=== PATIENT | male | born 1960 | race American Indian/Alaskan Native ===

== ENCOUNTER 2016-08-22 14:46 | Emergency (ER) | payer OTHER ==
[2016-08-22 15:01] VITALS: BP 100/69
--- NOTE | 2016-08-22 15:44 | Emergency Department Report ---
Chief Complaint: Weakness Stated Complaint: LOW BLOOD PRESSURE/DRY EYES/DIZZY Time Seen by Provider: 08/22/16 15:38 - HPI History of Present Illness: patient is a 56 y/o male who presents due to dizziness and low blood pressure x 1 day. Patient states that he started feelign dizzy yesterday. Patient states that he checked his BP today and it was sys 100s. Patient denies any chest pain or SOB. Patient states that he started lisinopril 2 months ago. - ROS Review of Systems: ROS GENERAL: patient denies any fever, chills LUNG: no SOB CV: no chest pain or palpitations abd:no abdominal pain Neuro: dizziness - Exam Vital Signs: Vital Signs 08/22/16 14:55 Temperature 98.6 F Pulse Rate 78 Respiratory 20 Rate Blood Pressure 100/69 O2 Sat by Pulse 97 Oximetry Physical Exam: general:patient was alert, well nourished, well developed Lung: clear bilateral lung sounds with goos airway exchange CV: regular HR and rhythm, no murmurs or gallops abd: no abdominal tenderness neuro: alert and oriented x 3 MSE screening note: Focused history and physical exam performed. Due to findings the following was ordered:cardiac protocol ED Disposition for MSE Condition: Stable
[2016-08-22 16:19] LABS: Basophils % (Auto) 0.4 % (0.0-1.8); Eosinophils % (Auto) 2.8 % (0.0-4.3); Hematocrit 43.7 % (35.5-45.6); Hemoglobin 14.2 gm/dl (11.8-15.2); Mean Corpuscular HGB Conc 33 % (32-34); Mean Corpuscular Hemoglobin 26 pg (28-32); Mean Corpuscular Volume 81 fl (84-94); Platelet Count 329 K/mm3 (140-440); Red Blood Count 5.41 M/mm3 (3.65-5.03); Red Cell Distribution Width 15.3 % (13.2-15.2); White Blood Count 8.9 K/mm3 (4.5-11.0)
[2016-08-22 16:26] LABS: Albumin 3.8 g/dL (3.9-5); BUN/Creatinine Ratio 14.58; Bilirubin,Total 0.4 mg/dL (0.1-1.2); Calcium 9.4 mg/dL (8.4-10.2); Chloride 93.7 mmol/L (98-107); Total Protein 7.5 g/dL (6.3-8.2)
== END 2016-08-22 16:30 | disposition left against medical advice (07) ==
LOC: ED 14:46
DX: R42 Dizziness and giddiness (principal); Z53.21 Procedure and treatment not carried out due to patient leaving prior to being seen by health care provider
CPT/HCPCS: 36415; 80053; 82962; 84484; 85025

== ENCOUNTER 2019-08-24 17:30 | Emergency (ER) | payer OTHER ==
[2019-08-24] MEDS ORDERED: MORPHINE 4 MG/1 ML INJ IV ONE (18:12)
[2019-08-24] MEDS ORDERED: KETOROLAC 30 MG/1 ML INJ IV ONE (18:12)
[2019-08-24] MEDS ORDERED: ONDANSETRON 4 MG/2 ML INJ IV ONE (18:12)
[2019-08-24] MEDS ORDERED: SODIUM CHLORIDE 0.9% 1000 ML 1,000 ML IV ONE (18:12)
[2019-08-24 18:21] LABS: Bilirubin,Urine NEG (Negative); Blood,Urine NEG (Negative); Color,Urine Yellow (Yellow); Mucus,Urine FEW /HPF; Protein,Urine <15 mg/dL mg/dL (Negative); Urobilinogen,Urine < 2.0 mg/dL (<2.0); WBC,Urine < 1.0 /HPF (0.0-6.0)
--- NOTE | 2019-08-24 18:22 | Emergency Department Report ---
ED General Adult HPI - General Chief complaint: Abdominal Pain Stated complaint: KIDNEY STONES Time Seen by Provider: 08/24/19 18:11 Source: patient Mode of arrival: Ambulatory Limitations: No Limitations - History of Present Illness Initial comments: Patient is a 5-year-old male presents emergency room with complaints of right flank pain that began 3 weeks ago but the pain worsened today. He states he feels intermittent sharp stabbing pain which waxes and wanes. Patient has a history of nephrolithiasis. He states he last had nephrolithiasis 2 years ago and had to have a lithotripsy at that time. He denies any nausea, vomiting, diarrhea, fever, dysuria, urinary frequency. He states he was recently treated for UTI by his primary care doctor at the [facility], he states he does not know the name of the antibiotic, he states that he completed the medication a week ago. He also has a history of diabetes and uses insulin. - Related Data Previous Rx's Medication Instructions Recorded Last Taken Type Ibuprofen [Motrin 800 MG tab] 800 mg PO Q8HR PRN #30 tablet 09/10/15 Unknown Rx Lisinopril/Hydrochlorothiazide 1 tab PO QDAY #30 tablet 09/10/15 Unknown Rx [Zestoretic 20-25 mg] Tamsulosin [Flomax] 0.4 mg PO QDAY #7 cap 08/24/19 Unknown Rx traMADoL [Ultram 50 MG tab] 50 mg PO Q6HR PRN #7 tablet 08/24/19 Unknown Rx Allergies Allergy/AdvReac Type Severity Reaction Status Date / Time No Known Allergies Allergy Verified 09/09/15 22:58 ED Review of Systems ROS: Stated complaint: KIDNEY STONES Other details as noted in HPI Comment: All other systems reviewed and negative ED Past Medical Hx - Past Medical History Hx Hypertension: Yes Hx Diabetes: Yes Hx Kidney Stones: Yes - Social History Smoking Status: Never Smoker Substance Use Type: None - Medications Home Medications: Home Medications Medication Instructions Recorded Confirmed Last Taken Type Ibuprofen [Motrin 800 MG tab] 800 mg PO Q8HR PRN #30 tablet 09/10/15 Unknown Rx Lisinopril/Hydrochlorothiazide 1 tab PO QDAY #30 tablet 09/10/15 Unknown Rx [Zestoretic 20-25 mg] Tamsulosin [Flomax] 0.4 mg PO QDAY #7 cap 08/24/19 Unknown Rx traMADoL [Ultram 50 MG tab] 50 mg PO Q6HR PRN #7 tablet 08/24/19 Unknown Rx ED Physical Exam - General Limitations: No Limitations General appearance: alert, in no apparent distress - Head Head exam: Present: atraumatic, normocephalic - Eye Eye exam: Present: normal appearance - ENT ENT exam: Present: mucous membranes moist - Respiratory Respiratory exam: Present: normal lung sounds bilaterally. Absent: respiratory distress, wheezes, rales, rhonchi, stridor, chest wall tenderness, accessory muscle use, decreased breath sounds, prolonged expiratory - Cardiovascular Cardiovascular Exam: Present: regular rate, normal rhythm, normal heart sounds. Absent: systolic murmur, diastolic murmur, rubs, gallop - GI/Abdominal GI/Abdominal exam: Present: soft, normal bowel sounds. Absent: distended, tenderness, guarding, rebound, rigid - Back Exam Back exam: Present: CVA tenderness (R). Absent: CVA tenderness (L) - Neurological Exam Neurological exam: Present: alert, oriented X3 - Psychiatric Psychiatric exam: Present: normal affect, normal mood - Skin Skin exam: Present: warm, dry, intact ED Course Vital Signs 08/24/19 08/24/19 17:50 19:17 Temperature 98.4 F 98.1 F Pulse Rate 110 H 72 Respiratory 18 18 Rate Blood Pressure 131/103 Blood Pressure 150/99 [Left] O2 Sat by Pulse 99 100 Oximetry ED Medical Decision Making - Lab Data Result diagrams: 08/24/19 18:26 08/24/19 19:10 Lab Results 08/24/19 08/24/19 08/24/19 Range/Units 18:00 18:26 19:10 WBC 6.1 (4.5-11.0) K/mm3 RBC 5.90 H (3.65-5.03) M/mm3 Hgb 16.3 H (11.8-15.2) gm/dl Hct 50.5 H (35.5-45.6) % MCV 86 (84-94) fl MCH 28 (28-32) pg MCHC 32 (32-34) % RDW 14.5 (13.2-15.2) % Plt Count 353 (140-440) K/mm3 Lymph % (Auto) 48.1 H (13.4-35.0) % [place] % (Auto) 9.4 H (0.0-7.3) % Eos % (Auto) 2.0 (0.0-4.3) % Baso % (Auto) 0.5 (0.0-1.8) % Lymph # 3.0 (1.2-5.4) K/mm3 [place] # 0.6 (0.0-0.8) K/mm3 Eos # 0.1 (0.0-0.4) K/mm3 Baso # 0.0 (0.0-0.1) K/mm3 Seg Neutrophils % 40.0 (40.0-70.0) % Seg Neutrophils # 2.5 (1.8-7.7) K/mm3 Sodium 134 L (137-145) mmol/L Potassium 3.9 (3.6-5.0) mmol/L Chloride 95.7 L (98-107) mmol/L Carbon Dioxide 27 (22-30) mmol/L Anion Gap 15 mmol/L BUN 10 (9-20) mg/dL Creatinine 0.9 (0.8-1.5) mg/dL Estimated GFR > 60 ml/min BUN/Creatinine Ratio 11 % Glucose 246 H (75-100) mg/dL Calcium 9.2 (8.4-10.2) mg/dL Total Bilirubin 0.60 (0.1-1.2) mg/dL AST 12 (5-40) units/L ALT 10 (7-56) units/L Alkaline Phosphatase 56 (35-129) units/L Total Protein 7.0 (6.3-8.2) g/dL Albumin 3.7 L (3.9-5) g/dL Albumin/Globulin Ratio 1.1 % Lipase 15 (13-60) units/L Urine Color Yellow (Yellow) Urine Turbidity Clear (Clear) Urine pH 6.0 (5.0-7.0) Ur Specific [place] 1.033 H (1.003-1.030) Urine Protein <15 mg/dl (Negative) mg/dL Urine Glucose (UA) >=500 (Negative) mg/dL Urine Ketones Neg (Negative) mg/dL Urine Blood Neg (Negative) Urine Nitrite Neg (Negative) Urine Bilirubin Neg (Negative) Urine Urobilinogen < 2.0 (<2.0) mg/dL Ur Leukocyte Esterase Neg (Negative) Urine WBC (Auto) < 1.0 (0.0-6.0) /HPF Urine RBC (Auto) 1.0 (0.0-6.0) /HPF U Epithel Cells (Auto) < 1.0 (0-13.0) /HPF Urine Mucus Few /HPF Vital Signs 08/24/19 08/24/19 17:50 19:17 Temperature 98.4 F 98.1 F Pulse Rate 110 H 72 Respiratory 18 18 Rate Blood Pressure 131/103 Blood Pressure 150/99 [Left] O2 Sat by Pulse 99 100 Oximetry - Radiology Data Radiology results: report reviewed CT ABDOMEN AND PELVIS WITHOUT CONTRAST INDICATION / CLINICAL INFORMATION: MAIN: right flank pain, hx of nephrolithiasis, Pt. sts extensive history of renal stones. TECHNIQUE: Axial CT images were obtained through the abdomen and pelvis without IV contrast. All CT scans at this location are performed using CT dose reduction for ALARA by means of automated exposure control. COMPARISON: None available. FINDINGS: LOWER CHEST: No significant abnormality. LIVER: No significant abnormality. GALLBLADDER: No significant abnormality. BILE DUCTS: No significant abnormality. PANCREAS: No significant abnormality. SPLEEN: No significant abnormality. ADRENALS: No significant abnormality. RIGHT KIDNEY and URETER: Tiny nonobstructive stones. LEFT KIDNEY and URETER: Tiny nonobstructive stones. STOMACH and SMALL BOWEL: No significant abnormality. COLON: No significant abnormality. Few colonic diverticula. APPENDIX: Not well identified and cannot be assessed. PERITONEUM: No free fluid. No free air. No fluid collection. LYMPH NODES: No significant adenopathy. AORTA and ARTERIES: Mild atherosclerotic calcification. IVC and VEINS: No significant abnormality. URINARY BLADDER: Mildly thickened urinary bladder wall. REPRODUCTIVE ORGANS: No significant abnormality. ADDITIONAL FINDINGS: None. SKELETAL SYSTEM: No significant abnormality. IMPRESSION: 1. Tiny nonobstructive stones present throughout both collecting systems. No hydronephrosis or evidence of obstructive ureteral calculus currently identified. 2. The urinary bladder wall is thickened which could be seen with infectious cystitis versus bladder outlet obstruction from prostate enlargement.. Signer Name: Tom Mar MD Signed: 08/24/2019 7:33 PM Workstation Name: [id number] Transcribed By: BC Dictated By: Tom Mar MD Electronically Authenticated By: Tom Mar MD Signed Date/Time: 08/24/191932 DD/ 27 TD/TT: - Medical Decision Making Patient is a 5-year-old male presents emergency room with complaints of right flank pain that began 3 weeks ago but the pain worsened today. He states he fe els intermittent sharp stabbing pain which waxes and wanes. Patient has a history of nephrolithiasis. He states he last had nephrolithiasis 2 years ago and had to have a lithotripsy at that time. He denies any nausea, vomiting, diarrhea, fever, dysuria, urinary frequency. He states he was recently treated for UTI by his primary care doctor at the [facility], he states he does not know the name of the antibiotic, he states that he completed the medication a week ago. He also has a history of diabetes and uses insulin. Vitals with tachycardia which improved upon repeat. Labs are stable. UA without evidence of UTI or hematuria. On exam patient has right CVA tenderness to percussion. CT abd Pe lvis without contrast shows 1. Tiny nonobstructive stones present throughout both collecting systems. No hydronephrosis or evidence of obstructive ureteral calculus currently identified. 2. The urinary bladder wall is thickened which could be seen with infectious cystitis versus bladder outlet obstruction from prostate enlargement. Patient's UA does not show signs of infection. Discussed all results with patient, discussed thickened bladder/nephrolithiasis and need for prostate evaluation and need for follow-up with urology, patient verbalized understanding. Patient given 1 L IV fluids, Toradol, morphine, Zofran and symptoms completely improved and he was feeling much better and ready to go home. Patient given prescription for tamsulosin and tramadol. advised pt Please take medication as prescribed. Do not drive or operate heavy machinery while taking pain medication. Increase your fluid intake. Follow-up with your primary care doctor. Follow-up with a urologist for further evaluation. Return to emergency room for any new or worsening symptoms. - Differential Diagnosis Nephrolithiasis, BERENICE, UTI, muscle strain, DDD, bulging disc, pyelonephritis Critical care attestation.: If time is entered above; I have spent that time in minutes in the direct care of this critically ill patient, excluding procedure time. ED Disposition Clinical Impression: Right flank pain, Nephrolithiasis, Bladder wall thickening Disposition: -01 TO HOME OR SELFCARE Is pt being admited?: No Does the pt Need Aspirin: No Condition: Stable Instructions: Kidney Stones (ED) Additional Instructions: Please take medication as prescribed. Do not drive or operate heavy machinery while taking pain medication. Increase your fluid intake. Follow-up with your primary care doctor. Follow-up with a urologist for further evaluation. Return to emergency room for any new or worsening symptoms. Prescriptions: Tamsulosin [Flomax] 0.4 mg PO QDAY #7 cap traMADoL [Ultram 50 MG tab] 50 mg PO Q6HR PRN #7 tablet PRN Reason: Pain , Severe (7-10) Referrals: PRIMARY CARE, [Primary Care Provider] - 2-3 Days ABHIJEET GARCIA MD [Staff Physician] - 2-3 Days Time of Disposition: 19:50 Print Language: KINYARWANDA
[2019-08-24 18:41] LABS: Basophils % (Auto) 0.5 % (0.0-1.8); Eosinophils # (Auto) 0.1 K/mm3 (0.0-0.4); Hematocrit 50.5 % (35.5-45.6); Hemoglobin 16.3 gm/dl (11.8-15.2); Lymphocytes % (Auto) 48.1 % (13.4-35.0); Mean Corpuscular HGB Conc 32 % (32-34); Mean Corpuscular Volume 86 fl (84-94); Monocytes # (Auto) 0.6 K/mm3 (0.0-0.8); Monocytes % (Auto) 9.4 % (0.0-7.3); Platelet Count 353 K/mm3 (140-440); Red Cell Distribution Width 14.5 % (13.2-15.2)
[2019-08-24 19:18] VITALS: BP 150/99
--- NOTE | 2019-08-24 19:37 | Cat Scan Report ---
CT ABDOMEN AND PELVIS WITHOUT CONTRAST INDICATION / CLINICAL INFORMATION: MAIN: right flank pain, hx of nephrolithiasis, Pt. sts extensive history of renal stones. TECHNIQUE: Axial CT images were obtained through the abdomen and pelvis without IV contrast. All CT scans at [facility] location are performed using CT dose reduction for ALARA by means of automated exposure control. COMPARISON: None available. FINDINGS: LOWER CHEST: No significant abnormality. LIVER: No significant abnormality. GALLBLADDER: No significant abnormality. BILE DUCTS: No significant abnormality. PANCREAS: No significant abnormality. SPLEEN: No significant abnormality. ADRENALS: No significant abnormality. RIGHT KIDNEY and URETER: Tiny nonobstructive stones. LEFT KIDNEY and URETER: Tiny nonobstructive stones. STOMACH and SMALL BOWEL: No significant abnormality. COLON: No significant abnormality. Few colonic diverticula. APPENDIX: Not well identified and cannot be assessed. PERITONEUM: No free fluid. No free air. No fluid collection. LYMPH NODES: No significant adenopathy. AORTA and ARTERIES: Mild atherosclerotic calcification. IVC and VEINS: No significant abnormality. URINARY BLADDER: Mildly thickened urinary bladder wall. REPRODUCTIVE ORGANS: No significant abnormality. ADDITIONAL FINDINGS: None. SKELETAL SYSTEM: No significant abnormality. IMPRESSION: 1. Tiny nonobstructive stones present throughout both collecting systems. No hydronephrosis or eviden ce of obstructive ureteral calculus currently identified. 2. The urinary bladder wall is thickened which could be seen with infectious cystitis versus bladder outlet obstruction from prostate enlargement.. Signer Name: Tom Mar MD Signed: 08/24/2019 7:33 PM Workstation Name: [id number]
[2019-08-24 19:45] LABS: Alanine Aminotransferase 10 units/L (7-56); Albumin 3.7 g/dL (3.9-5); BUN/Creatinine Ratio 11; Blood Urea Nitrogen 10 mg/dL (9-20); Calcium 9.2 mg/dL (8.4-10.2); Hemolysis Index 10
== END 2019-08-24 20:09 | disposition home or self-care (01) ==
LOC: ED 17:30
DX: N20.0 Calculus of kidney (principal); R10.9 Unspecified abdominal pain; N32.89 Other specified disorders of bladder; I10 Essential (primary) hypertension; E11.9 Type 2 diabetes mellitus without complications; Z79.899 Other long term (current) drug therapy
CPT/HCPCS: 36415; 74176; 80053; 81001; 83690; 85025; 96374; 96375; 99284; J1885; J2270; J2405; J7030

== ENCOUNTER 2021-05-16 19:49 | Emergency (ER) | payer OTHER ==
[2021-05-16] MEDS ORDERED: INSULIN REGULAR, HUMAN 100 UNITS/1 ML IV ONE (23:07)
[2021-05-16] MEDS ORDERED: SODIUM CHLORIDE 0.9% 1000 ML 1,000 ML IV ONE (23:07)
--- NOTE | 2021-05-16 23:10 | Emergency Department Report ---
ED General Adult HPI - General Chief complaint: Hyperglycemia Stated complaint: HYPERGLYCEMIA Time Seen by Provider: 05/16/21 23:01 Source: patient Mode of arrival: Ambulatory Limitations: No Limitations - History of Present Illness Initial comments: 61-year-old male with a past medical here diabetes and hypertension presents to the hospital complaints of elevated blood sugar since running out of medication yesterday. Patient takes Jardiance 25 mg every morning. He took his last dose yesterday. Patient has a PMD affiliated with the [facility] but he travels a lot for work and therefore has not been able to follow-up. He states he was on blood pressure medication in the past but it was discontinued since blood pressure improved. He complains of some mild increase urination without dysuria, increased thirst, nausea, vomiting, or fever. - Related Data Previous Rx's Medication Instructions Recorded Last Taken Type Ibuprofen [Motrin 800 MG tab] 800 mg PO Q8HR PRN #30 tablet 09/10/15 Unknown Rx Lisinopril/Hydrochlorothiazide 1 tab PO QDAY #30 tablet 09/10/15 Unknown Rx [Zestoretic 20-25 mg] Tamsulosin [Flomax] 0.4 mg PO QDAY #7 cap 08/24/19 Unknown Rx traMADoL [Ultram 50 MG tab] 50 mg PO Q6HR PRN #7 tablet 08/24/19 Unknown Rx Empagliflozin [Jardiance] 25 mg PO QAM #30 tab 05/17/21 Unknown Rx Allergies Allergy/AdvReac Type Severity Reaction Status Date / Time No Known Allergies Allergy Verified 05/16/21 22:46 ED Review of Systems ROS: Stated complaint: HYPERGLYCEMIA Other details as noted in HPI Comment: All other systems reviewed and negative ED Past Medical Hx - Past Medical History Hx Hypertension: Yes Hx Diabetes: Yes Hx Kidney Stones: Yes - Surgical History Past Surgical History?: No - Social History Smoking Status: Never Smoker Substance Use Type: None - Medications Home Medications: Home Medications Medication Instructions Recorded Confirmed Last Taken Type Ibuprofen [Motrin 800 MG tab] 800 mg PO Q8HR PRN #30 tablet 09/10/15 Unknown Rx Lisinopril/Hydrochlorothiazide 1 tab PO QDAY #30 tablet 16 Unknown Rx [Zestoretic 20-25 mg] Tamsulosin [Flomax] 0.4 mg PO QDAY #7 cap 08/24/19 Unknown Rx traMADoL [Ultram 50 MG tab] 50 mg PO Q6HR PRN #7 tablet 08/24/19 Unknown Rx Empagliflozin [Jardiance] 25 mg PO QAM #30 tab 05/17/21 Unknown Rx ED Physical Exam - General Limitations: No Limitations - Other Other exam information: General: No acute distress Head: Atraumatic Eyes: normal appearance Neck: Normal appearance, no midline tenderness Chest: Clear to auscultation bilaterally CV: Regular rate and rhythm Abdomen: Soft, normal bowel sounds, nontender, nondistended, no rebound or guarding Back: Normal inspection Extremity: Normal inspection, full range of motion Neuro: Alert O x 3, no facial asymmetry, speech clear, no gross motor sensory deficit Psych: Appropriate behavior Skin: No rash ED Course Vital Signs 05/16/21 22:41 Temperature 98.1 F Pulse Rate 101 H Respiratory 18 Rate Blood Pressure 142/102 O2 Sat by Pulse 98 Oximetry ED Medical Decision Making - Lab Data Result diagrams: 05/16/21 23:24 05/16/21 23:24 Lab Results 05/16/21 05/16/21 05/16/21 Range/Units 22:43 23:24 23:24 WBC 7.5 (4.5-11.0) K/mm3 RBC 5.88 H (3.65-5.03) M/mm3 Hgb 15.7 H (11.8-15.2) gm/dl Hct 49.2 H (35.5-45.6) % MCV 84 (84-94) fl MCH 27 L (28-32) pg MCHC 32 (32-34) % RDW 15.0 (13.2-15.2) % Plt Count 346 (140-440) K/mm3 Lymph % (Auto) 45.0 H (13.4-35.0) % [place] % (Auto) 8.3 H (0.0-7.3) % Eos % (Auto) 3.2 (0.0-4.3) % Baso % (Auto) 1.0 (0.0-1.8) % Lymph # (Auto) 3.4 (1.2-5.4) K/mm3 [place] # (Auto) 0.6 (0.0-0.8) K/mm3 Eos # (Auto) 0.2 (0.0-0.4) K/mm3 Baso # (Auto) 0.1 (0.0-0.1) K/mm3 Seg Neutrophils % 42.5 (40.0-70.0) % Seg Neutrophils # 3.2 (1.8-7.7) K/mm3 VBG pH (7.320-7.420) Sodium 132 L (137-145) mmol/L Potassium 4.0 (3.6-5.0) mmol/L Chloride 92.1 L (98-107) mmol/L Carbon Dioxide 26 (22-30) mmol/L Anion Gap 18 mmol/L BUN 12 (9-20) mg/dL Creatinine 1.0 (0.8-1.3) mg/dL Estimated GFR > 60 ml/min BUN/Creatinine Ratio 12 % Glucose 559 H* (75-100) mg/dL POC Glucose 505 H (70-105) mg/dL Calcium 9.7 (8.4-10.2) mg/dL Urine Color (Yellow) Urine Turbidity (Clear) Urine pH (5.0-7.0) Ur Specific [place] (1.003-1.030) Urine Protein (Negative) mg/dL Urine Glucose (UA) (Negative) mg/dL Urine Ketones (Negative) mg/dL Urine Blood (Negative) Urine Nitrite (Negative) Urine Bilirubin (Negative) Urine Urobilinogen (<2.0) mg/dL Ur Leukocyte Esterase (Negative) Urine WBC (Auto) (0.0-6.0) /HPF Urine RBC (Auto) (0.0-6.0) /HPF U Epithel Cells (Auto) (0-13.0) /HPF Urine Mucus /HPF 05/16/21 05/17/21 05/17/21 Range/Units 23:24 00:42 02:10 WBC (4.5-11.0) K/mm3 RBC (3.65-5.03) M/mm3 Hgb (11.8-15.2) gm/dl Hct (35.5-45.6) % MCV (84-94) fl MCH (28-32) pg MCHC (32-34) % RDW (13.2-15.2) % Plt Count (140-440) K/mm3 Lymph % (Auto) (13.4-35.0) % [place] % (Auto) (0.0-7.3) % Eos % (Auto) (0.0-4.3) % Baso % (Auto) (0.0-1.8) % Lymph # (Auto) (1.2-5.4) K/mm3 [place] # (Auto) (0.0-0.8) K/mm3 Eos # (Auto) (0.0-0.4) K/mm3 Baso # (Auto) (0.0-0.1) K/mm3 Seg Neutrophils % (40.0-70.0) % Seg Neutrophils # (1.8-7.7) K/mm3 VBG pH 7.346 (7.320-7.420) Sodium (137-145) mmol/L Potassium (3.6-5.0) mmol/L Chloride (98-107) mmol/L Carbon Dioxide (22-30) mmol/L Anion Gap mmol/L BUN (9-20) mg/dL Creatinine (0.8-1.3) mg/dL Estimated GFR ml/min BUN/Creatinine Ratio % Glucose (75-100) mg/dL POC Glucose 251 H (70-105) mg/dL Calcium (8.4-10.2) mg/dL Urine Color Straw (Yellow) Urine Turbidity Clear (Clear) Urine pH 5.0 (5.0-7.0) Ur Specific [place] 1.036 H (1.003-1.030) Urine Protein <15 mg/dl (Negative) mg/dL Urine Glucose (UA) >=500 (Negative) mg/dL Urine Ketones Neg (Negative) mg/dL Urine Blood Neg (Negative) Urine Nitrite Neg (Negative) Urine Bilirubin Neg (Negative) Urine Urobilinogen < 2.0 (<2.0) mg/dL Ur Leukocyte Esterase Neg (Negative) Urine WBC (Auto) < 1.0 (0.0-6.0) /HPF Urine RBC (Auto) 1.0 (0.0-6.0) /HPF U Epithel Cells (Auto) < 1.0 (0-13.0) /HPF Urine Mucus Few /HPF - Medical Decision Making 61-year-old male presents to the hospital with hyperglycemia secondary to medication noncompliance. No signs of DKA. Urine reveals significant dehydration. Patient treated with IV fluids and insulin bolus x2 with improvement in glucose level. Patient be discharged on a month supply of his medication encouraged to follow-up with his PMD Critical Care Time: No Critical care attestation.: If time is entered above; I have spent that time in minutes in the direct care of this critically ill patient, excluding procedure time. ED Disposition Clinical Impression: Hyperglycemia due to diabetes mellitus, Noncompliance with medication regimen, Elevated blood pressure reading Disposition: 01 HOME / SELF CARE / HOMELESS Is pt being admited?: Yes Condition: Stable Instructions: Diabetes Mellitus Type 2 in Adults (ED), Type 2 Diabetes Mellitus, Self Care, Adult, How to Take Your Blood Pressure Additional Instructions: Take the medication as prescribed. Follow-up with your doctor or doctor/clinic provided. Return if symptoms worsen as indicated by your discharge instructions. Prescriptions: Empagliflozin [Jardiance] 25 mg PO QAM #30 tab Referrals: PRIMARY CARE, [Primary Care Provider] - 3-5 Days Time of Disposition: 04:39
[2021-05-16 23:37] LABS: Basophils # (Auto) 0.1 K/mm3 (0.0-0.1); Eosinophils # (Auto) 0.2 K/mm3 (0.0-0.4); Eosinophils % (Auto) 3.2 % (0.0-4.3); Hematocrit 49.2 % (35.5-45.6); Hemoglobin 15.7 gm/dl (11.8-15.2); Lymphocytes # (Auto) 3.4 K/mm3 (1.2-5.4); Mean Corpuscular HGB Conc 32 % (32-34); Mean Corpuscular Volume 84 fl (84-94); Monocytes # (Auto) 0.6 K/mm3 (0.0-0.8); Monocytes % (Auto) 8.3 % (0.0-7.3); Platelet Count 346 K/mm3 (140-440); Red Blood Count 5.88 M/mm3 (3.65-5.03)
[2021-05-16 23:55] LABS: BUN/Creatinine Ratio 12; Blood Urea Nitrogen 12 mg/dL (9-20); Calcium 9.7 mg/dL (8.4-10.2); Hemolysis Index 7
[2021-05-17 02:15] LABS: Bilirubin,Urine NEG (Negative); Blood,Urine NEG (Negative); Color,Urine Straw (Yellow); Mucus,Urine FEW /HPF; Protein,Urine <15 mg/dL mg/dL (Negative); Urobilinogen,Urine < 2.0 mg/dL (<2.0); WBC,Urine < 1.0 /HPF (0.0-6.0)
[2021-05-17] MEDS ORDERED: INSULIN REGULAR, HUMAN 100 UNITS/1 ML IV ONE (02:28)
[2021-05-17] MEDS ORDERED: SODIUM CHLORIDE 0.9% 1000 ML 1,000 ML IV ONE (02:29)
[2021-05-17 05:33] VITALS: BP 137/91
== END 2021-05-17 05:33 | disposition home or self-care (01) ==
LOC: ED 19:49
DX: E11.65 Type 2 diabetes mellitus with hyperglycemia (principal); I10 Essential (primary) hypertension; N20.0 Calculus of kidney; Z91.14 Patient's other noncompliance with medication regimen; Z79.899 Other long term (current) drug therapy
CPT/HCPCS: 36415; 80048; 81001; 82805; 82962; 85025; 96361; 96374; 96376; 99283; J7030; Q0162; Q9967; J1815